=== PATIENT | male | born 1990 | race Two or more races ===

== ENCOUNTER 2023-07-31 21:14 | Emergency (ER) | payer OTHER ==
[~2023-07-31] VITALS: Ht 170.2 cm; Wt 80.3 kg
[2023-07-31] MEDS ORDERED: TDAP [DIPH/PERTUSSIS/TET] 0.5 ML VIAL IM ONE (22:35)
[2023-07-31] MEDS: TDAP [DIPH/PERTUSSIS/TET] 0.5 ML VIAL IM ONE (22:49)
[2023-07-31] MEDS: LIDOCAINE /MPF 1% VIAL 5 ML VIAL IJ ONE (23:03)
[2023-07-31 23:55] VITALS: BP 118/75; TEMP 98; O2SAT 98
== END 2023-07-31 23:55 | disposition home or self-care (01) ==
LOC: ER 21:21
DX: S01.01XA Laceration without foreign body of scalp, initial encounter (principal); W20.8XXA Other cause of strike by thrown, projected or falling object, initial encounter; Y93.89 Activity, other specified; Y92.89 Other specified places as the place of occurrence of the external cause; Y99.0 Civilian activity done for income or pay
CPT/HCPCS: 70450-TC; 90715